=== PATIENT | female | born 1940 | race African-American/Black ===

== ENCOUNTER 2018-10-25 18:16 | Emergency (ER) | payer MEDICARE, BC ==
[~2018-10-25] VITALS: Ht 157.5 cm; Wt 61.0 kg
[2018-10-25 21:10] LABS: BASOPHILS % 0.3 % (0.0-2.0); EOSINOPHILS % 0.4 % (0.0-5.0); HEMATOCRIT. 33.5 % (36.0-48.0); HEMOGLOBIN. 10.7 g/dL (12.0-16.0); LYMPHOCYTES % 8.2 % (20.0-50.0); MEAN CORPUSCULAR HEMOGLOBIN 26.3 pg (28.0-32.0); MEAN CORPUSCULAR VOLUME 82.4 fL (81.0-99.0); MEAN PLATELET VOLUME 9.3 fl (7.4-10.4); MONOCYTES % 4.1 % (2.0-8.0); PLATELET 222 x1000/uL (130-400); RED BLOOD CELL COUNT 4.07 mill/uL (4.2-5.4); RED CELL DISTRIBUTION WIDTH 16.8 % (11.6-14.6)
[2018-10-25 21:11] LABS: CHLORIDE 114 mEq/L (98-107)
[2018-10-25 22:35] VITALS: BP 165/85
== END 2018-10-25 22:38 | disposition home or self-care (01) ==
LOC: ER 18:16
DX: K62.5 Hemorrhage of anus and rectum (principal); K59.00 Constipation, unspecified; I10 Essential (primary) hypertension; F03.90 Unspecified dementia, unspecified severity, without behavioral disturbance, psychotic disturbance, mood disturbance, and anxiety; E87.8 Other disorders of electrolyte and fluid balance, not elsewhere classified
CPT/HCPCS: 36415; 99283

== ENCOUNTER 2018-11-14 17:27 | Emergency (ER) | payer MEDICARE, BC ==
[~2018-11-14] VITALS: Ht 162.6 cm; Wt 55.0 kg
[2018-11-14] MEDS ORDERED: TETANUS, DIPHTHERIA, PERTUSSIS VAC/PF 0.5ML (>7YR OLD) IM ONE (18:30)
[2018-11-14] MEDS ORDERED: LIDOCAINE HCL/PF 1% 10 MG/ML 5ML VIAL IJ ONE (18:30)
[2018-11-14] MEDS ORDERED: LIDOCAINE 1%/EPI 1:100,000 10 ML VIAL IJ ONE (18:30)
[2018-11-14 22:38] VITALS: BP 149/72
== END 2018-11-15 00:31 | disposition home or self-care (01) ==
LOC: ER 11-15 00:09
DX: S01.81XA Laceration without foreign body of other part of head, initial encounter (principal); W18.39XA Other fall on same level, initial encounter; Y93.89 Activity, other specified; Y92.89 Other specified places as the place of occurrence of the external cause; Y99.8 Other external cause status
CPT/HCPCS: 12013; 70450; 72125; 73100; 90471; 90715; 99284; J3490

== ENCOUNTER 2018-11-19 16:04 | Emergency (ER) | payer MEDICARE, BC ==
[~2018-11-19] VITALS: Ht 157.5 cm; Wt 50.0 kg
[2018-11-19 19:44] VITALS: BP 132/62
== END 2018-11-19 20:18 | disposition home or self-care (01) ==
LOC: ER 16:04
DX: Z48.00 Encounter for change or removal of nonsurgical wound dressing (principal)
CPT/HCPCS: 99281